=== PATIENT | female | born 1955 | race Caucasian/White ===

== ENCOUNTER 2024-05-09 15:33 | Emergency (ER) | payer MEDICARE, MEDICAID ==
[~2024-05-09] VITALS: Ht 162.6 cm; Wt 113.6 kg
[~2024-05-09 15:33] MED LIST: AMLO5TAB PO; DOCU-273; MELO-82 PO; PER10325T PO
[2024-05-09 15:52] LABS: BASOPHILS % (AUTO) 0.5 % (0-1); EOSINOPHILS # (AUTO) 0.2 X10'3 (0-0.9); EOSINOPHILS % (AUTO) 2.2 % (0-6); HEMOGLOBIN 13.9 g/dl (12.0-16.0); LYMPHOCYTES % (AUTO) 33.3 % (21-51); MEAN CORPUSCULAR HGB CONC 32.4 g/dL (33.0-36.5); MEAN CORPUSCULAR VOLUME 86.3 FL (78-98); MEAN PLATELET VOLUME 7.4 FL (7.4-10.4); MONOCYTES # (AUTO) 0.6 X10'3 (0-0.9); MONOCYTES % (AUTO) 6.3 % (2-12); NEUTROPHILS # (AUTO) 5.2 X10'3 (1.8-7.7); NEUTROPHILS % (AUTO) 57.7 % (42-75); PLATELET COUNT 272 X10'3 (140-440); RED BLOOD COUNT 4.98 X10'6 (4.20-5.60); RED CELL DISTRIBUTION WIDTH 14.3 % (11.5-14.5)
[2024-05-09 16:10] LABS: ALANINE AMINOTRANSFERASE 30 U/L (12-78); ALBUMIN 3.6 G/DL (3.4-5.0); ALBUMIN/GLOBULIN RATIO 0.8 (1.1-1.5); ALKALINE PHOSPHATASE 98 IU/L (46-116); ANION GAP 6 (8-16); ASPARTATE AMINO TRANSFERASE 13 U/L (10-37); BILIRUBIN,TOTAL 0.3 MG/DL (0.1-1.0); BLOOD UREA NITROGEN 12 MG/DL (7-18); BUN/CREATININE RATIO 14.1 (10.0-20.0); CALCIUM 9.3 MG/DL (8.5-10.1); CHLORIDE 107 MMOL/L (99-107); CREATININE 0.85 MG/DL (0.40-0.90); GLUCOSE 81 MG/DL (70-104); SODIUM 141 MMOL/L (135-145); TOTAL CARBON DIOXIDE 28.3 MMOL/L (24-32); eCRCL 56 ML/MIN; eGFR 67 ML/MIN
[2024-05-09 16:19] LABS: PRO BRAIN NATRIURETIC PEPTIDE 40 PG/ML (0-125)
[2024-05-09 17:35] VITALS: TEMP 98
[2024-05-09 17:53] VITALS: BP 168/86; PULSE 84; RESP 16; O2SAT 98
== END 2024-05-09 17:57 | disposition home or self-care (01) ==
LOC: ER 15:33
DX: I10 Essential (primary) hypertension (principal); G47.30 Sleep apnea, unspecified; M19.90 Unspecified osteoarthritis, unspecified site; Z90.710 Acquired absence of both cervix and uterus
CPT/HCPCS: 36415; 71045; 80053; 83880; 84484; 85025; 93005; 99285

== ENCOUNTER 2024-08-19 12:41 | Emergency (ER) | payer MEDICARE, MEDICAID ==
[~2024-08-19] VITALS: Ht 162.6 cm; Wt 95.0 kg
[2024-08-19 12:57] VITALS: BP 164/83; PULSE 92; RESP 18; TEMP 97.5; O2SAT 99
[2024-08-19] MEDS: dexamethasone 4mg tablet PO ONE (14:28)
[2024-08-19] MEDS ORDERED: DEXA6TAB PO (14:36)
--- NOTE | 2024-08-19 14:37 | Physician Documentation ---
History of Present Illness ~ Chief Complaint: Shoulder pain Stated Complaint: L SHOULDER PAIN Time Seen by MD: 13:25 OK to notify your PCP?: Yes Primary Medical Doctor: Alis Source: patient Mode of Arrival: POV Exam Limitations: no limitations HPI 68-year-old right-handed female with left posterior shoulder pain that she has had for quite some time as she states she has thoracic outlet syndrome as well as rotator cuff tears and chronic shoulder pain but that recently she had moved a certain way and now she has worsening of her shoulder pain. She states she felt a pop in her posterior shoulder and now has pain with any direct pressure to her thoracic spine and with movement of her left shoulder she has increased pain in her posterior shoulder. She is wearing a brace over her left shoulder which she has worn since being diagnosed with a rotator cuff tear. Taking oxycodone for her pain is not providing her with any relief. Tetanus within 5 years?: Yes Medication Reconciliation Allergies: Coded Allergies: No Known Allergies (Unverified , 08/19/24) Scheduled Amlodipine Besylate (Amlodipine Besylate), 1 TABLET PO DAILY, (Reported) Meloxicam (Meloxicam), 15 MG PO DAILY, (Reported) Oxycodone Hcl/Acetaminophen 10/325 MG* (Percocet 10/325 MG*), 1 TAB PO Q6H, (Reported) Miscellaneous Medications Docusate Sodium (Doc-Q-Lace), (Reported) Past Medical History Past Medical History: Migraine, Hypertension, Sleep Apnea, UTI, Arthritis, Bustits, Chronic Pain Past Surgical History: hysterectomy, orthopedic surgeries, tonsillectomy Alcohol Use: Occasionally Drug Use: none Lives with: Alone Lives In: Home Occupation: unemployed Review of Systems All Other Systems at this time: Reviewed and Negative Physical Exam Vital Signs: Temperature: 97.5, Source: Temporal, Heart Rate: 92, Respiratory Rate: 18, BP: 164/83, Pulse Oximetry: 99, Weight: 95.000 Oxygen Flow Rate: 0 Physical Exam GENERAL: Alert, no acute distress. HEENT: NCAT, EOMI, PERRL, normal oropharynx, moist oral mucosa. NECK: Supple, trachea midline. CARDIAC: Regular rate and rhythm, no murmurs, rubs, or gallops. Equal distal pulses. No lower extremity edema, cap refill less than 2 seconds. RESPIRATORY: Equal breath sounds, clear to auscultation bilaterally, no respiratory distress. MUSCULOSKELETAL: Patient is wearing a left shoulder raise that goes around her torso and around her left shoulder. Patient has tenderness over her thoracic spinous processes as well as her left scapula and subscapularis muscle. nttp over spinous processes of cervical spine. Moving cervical spine around normally. Normal gait. NEUROLOGICAL: Awake, alert, and oriented x 3. SKIN: Warm/dry, no pallor, no rash. PSYCH: Alert and appropriate. Affect congruent with mood. Speech is clear. Good eye contact. Progress Results/Orders Results/Orders Orders - LOW VAUGHAN Shoulder, Complete (Min 2 Vws) (08/19/24 13:58) Thoracic Spine Litd (08/19/24 13:58) Completed Orders - LOW VAUGHAN Shoulder, Complete (Min 2 Vws) (08/19/24 13:58) Thoracic Spine Litd (08/19/24 13:58) Dexamethasone Tablet (Decadron Tablet) (08/19/24 14:00) Medications Received in ER Medications (Trade) Dose Ordered Sig/Sam Route PRN Reason Start Time Stop Time Status Last Admin Dose Admin (Decadron tablet) 6 mg ONCE ONCE PO 08/19/24 14:00 08/19/24 14:01 DC 08/19/24 14:28 6 MG Vital Signs 08/19/24 12:57 Temp 97.5 Pulse 92 Resp 18 B/P (MAP) 164/83 Pulse Ox 99 O2 Flow Rate 0 Medical Decision Making Differential Dx:Considerations: Include: AC separation, Adhesive capsulitis, arthritis, Bicipital tendonitis, Calcific tendonitis, Cervical disc disease, Contusion, Dislocation, Fracture: Humerus, Fracture: Scapula, Fracture: Clavicle, Gallbladder Disease, Hematoma, Impingement syndrome, Myocardial infarction, Neurovascular Injury, Rotator cuff injury, SC dislocation, Sprain, Subacromial bursitis Departure Time of Disposition: 14:34 Disposition: 01 HOME / SELF CARE / HOMELESS Impression: Primary Impression: Thoracic back pain Qualified Codes: M54.6 - Pain in thoracic spine Additional Impression: Left shoulder pain Qualified Codes: M25.512 - Pain in left shoulder Condition: Stable Discharge Instructions: Shoulder Pain, [id number] Additional Instructions: Follow up with your pain management provider next week, continue your oxycodone and gabapentin as prescribed. I sent a prescription for dexamethasone which you can start tomorrow as we gave you a dose here in the ER. Referrals: NO PRIMARY CARE PROVIDER (PCP) Prescriptions Dexamethasone (Dexamethasone) 6 Mg Tablet 1 TAB PO ONCE for 5 Days, #5 TAB 0 Refills Prov: LOW VAUGHAN 08/19/24 Education Educated: Patient Educated regarding: diagnosis, treatment, need for follow up Signature Scribe Signature: x Attestation: x LOW VAUGHAN Aug 19, 2024 14:36
--- NOTE | 2024-08-19 14:55 | RADIOLOGY REPORT ---
CLINICAL INDICATION: thoracic pain and left shoulder pain TECHNIQUE: 2 radiographic views of the left shoulder were obtained. Comparison: None FINDINGS/IMPRESSION: There is no evidence of acute fracture or dislocation. Mild degenerative changes of the shoulder. The alignment is anatomical. There is no radiopaque foreign body.
--- NOTE | 2024-08-19 14:56 | RADIOLOGY REPORT ---
CLINICAL INDICATION: thoracic pain and left shoulder pain TECHNIQUE: 3 radiographic views of the thoracic spine were obtained. Comparison: None FINDINGS/IMPRESSION: 12 rib-bearing thoracic type vertebrae. Minimal dextroconvex curvature of the upper thoracic spine. The vertebral body heights are maintained. Straightening of the thoracic kyphosis. Multilevel mild-t o-moderate degenerative changes of the thoracic spine. No evidence of acute traumatic fractures or sp ondylolisthesis. If symptoms persist, consider CT/ MRI for further evaluation. Mild cardiomegaly. Bronchovascular crowding due to low lung volumes.
== END 2024-08-19 15:09 | disposition home or self-care (01) ==
LOC: ER 12:42
DX: M25.512 Pain in left shoulder (principal); M54.6 Pain in thoracic spine; I10 Essential (primary) hypertension; M19.90 Unspecified osteoarthritis, unspecified site; G47.30 Sleep apnea, unspecified; G43.909 Migraine, unspecified, not intractable, without status migrainosus; Z90.710 Acquired absence of both cervix and uterus; Z79.899 Other long term (current) drug therapy; Z56.0 Unemployment, unspecified; Z72.89 Other problems related to lifestyle
CPT/HCPCS: 72070; 73030; 99284